=== PATIENT | female | born 1990 | race American Indian/Alaskan Native ===

== ENCOUNTER 2021-04-27 15:41 | Emergency (ER) | payer MEDICAID ==
[2021-04-27 16:02] VITALS: BP 104/52
== END 2021-04-27 23:00 | disposition home or self-care (01) ==
LOC: ED 15:41
DX: O20.0 Threatened abortion (principal); O23.41 Unspecified infection of urinary tract in pregnancy, first trimester; Z3A.10 10 weeks gestation of pregnancy; Z91.040 Latex allergy status
CPT/HCPCS: 36415; 76817; 81001; 84702; 85025; 85610; 85730; 86900; 86901; 87086; 99283